=== PATIENT | male | born 1980 | race Caucasian/White ===

== ENCOUNTER 2017-04-21 11:22 | Emergency (ER) | payer OTHER ==
[~2017-04-21] VITALS: Ht 175.3 cm; Wt 127.0 kg
--- OUTSIDE RECORDS SUMMARY | 2017-04-21 11:28 | XMS REPORT | Continuity of Care Document ---
Demographics Preferred Language Unknown Marital Status Unknown Orthodoxy Affiliation Unknown Race Unknown Ethnic Group Unknown Author Author [facility] Address Unknown Phone Unavailable Allergies Active Description Code Type Severity Reaction Onset Reported/Identified Relationship to Patient Clinical Status Yes Penicillins Drug Allergy 07/26/2012 Yes prednisone Drug Allergy 07/26/2012 Medications There is no data. Problems Date Dx Coded Attending Type Code Diagnosis Diagnosed By 01/04/2008 V74.1 SCREENING EXAMINATION FOR PULMONARY TUBERCULOSIS 07/26/2012 796.2 ELEVATED BLOOD PRESSURE READING WITHOUT DIAGNOSIS OF HYPERTENSION 07/26/2012 V72.85 OTHER SPECIFIED EXAMINATION Procedures There is no data. Results There is no data. Encounters ACCT No. Visit Date/Time Discharge Status Pt. Type Provider Facility Loc./Unit Complaint [id number] 07/26/2012 11:16:00 Document Registration
--- NOTE | 2017-04-21 12:25 | ED Integumentary General ---
General Chief Complaint: -Male Stated Complaint: HERNIA Nursing Triage Note: Patient advises he was working yesterday when he began experiencing pain in his right thigh. He advises today that he awoke with swelling to both testicals and increased pain. He advises he was seen by Dr. Mina at the [facility] that advised he would need an ultrasound. Source: patient Exam Limitations: no limitations History of Present Illness Time seen by provider: 12:17 Initial Comments Patient presents to ER by private conveyance with chief complaint of a mass on the right scrotum that started about 2-3 days ago. He went to [facility] and had an examination but no ultrasound done as they don't have ultrasound there apparently. He was told that they thought it might of been a testicular torsion versus inguinal hernia. 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 Pain is not worse on lifting but worse mostly on just touching it. He says his testicles are not painful he has no discharge at a monogamous relationship denies any STI as ever. Patient has no dysuria, fevers, chills, nausea, vomiting, diarrhea. Last bowel movement was this morning, normal, formed. Patient describes the pain as it feels like an ingrown hair. Allergies and Home Medications Allergies Coded Allergies: prednisone (Verified Allergy, Intermediate, 04/21/17) Constitutional: No chills, No diaphoresis Gastrointestinal: No abdominal pain, No constipation, No diarrhea, No nausea, No vomiting Genitourinary: No discharge, No dysuria, No frequency Musculoskeletal: No back pain, No joint pain Skin: No pruritus, No rash Past Szsobdc-Ugynqc-Aputyj Hx Patient Social History Alcohol Use: Denies Use Recreational Drug Use: No Smoking Status: Never a Smoker Type Used: Smokeless Tobacco Recent Foreign Travel: No Contact w/Someone Who Travel: No Recent Infectious Disease Expo: No Recent Hopitalizations: No Physical Abuse: No Sexual Abuse: No Seasonal Allergies Seasonal Allergies: No Surgeries History of Surgeries: No Respiratory History of Respiratory Disorde: No Cardiovascular History of Cardiac Disorders: No Neurological History of Neurological Disord: No Genitourinary History of Genitourinary Disor: No Gastrointestinal History of Gastrointestinal Di: No Musculoskeletal History of Musculoskeletal Dis: No Endocrine History of Endocrine Disorders: No HEENT History of HEENT Disorders: No Cancer History of Cancer: No Psychosocial History of Psychiatric Problem: No Suicide Risk Score: 0 Integumentary History of Skin or Integumenta: No Blood Transfusions History of Blood Disorders: No Physical Exam Vital Signs Vital Sign - Last 12Hours 04/21/17 11:33 Pulse 86 Resp 14 B/P (MAP) 141/80 (100) Pulse Ox 98 O2 Delivery Room Air Capillary Refill : Less Than 3 Seconds General Appearance: WD/WN, no apparent distress HEENT: PERRL/EOMI, pharynx normal Gastrointestinal: normal bowel sounds, non tender, soft Extremities: normal range of motion, non-tender, normal inspection Neurologic/Psychiatric: alert, oriented x 3 Skin: other (lateral right scrotum with a 4 x 6 cm indurated erythematous tender nodule in the skin consistent with possible abscess. There is no central pore, drainage or evidence of recent injury.) I&D : Blade Size: 11 I & D Procedure: betadine prep, no Wound Packing Progress Indurated abscess was infiltrated and a ring block fashion around the central spot that had a martinez. The patient was ascertained to be numb and 11 blade was passed in a crosshatch incision and a modest amount of dark purulent drainage came out. A sterile Q-tip was then passed and loculations were broken up and some more purulence was produced. Patient was then dressed with a bit of gauze and tape after being flushed with 10 cc of sterile saline. Progress/Results/Core Measures Results/Orders Vital Signs/I&O Vital Sign - Last 12Hours 04/21/17 11:33 Pulse 86 Resp 14 B/P (MAP) 141/80 (100) Pulse Ox 98 O2 Delivery Room Air Blood Pressure Mean: 100 Progress Note : Time: 12:24 Progress Note Because of its proximity to the testicles and testicles are not tender Reglan order an ultrasound to make sure there is no chance of being an inguinal hernia is quite large indurated and I'm unable to do a satisfactory right inguinal exam. If the ultrasound makes it look like an abscess and we will drain it. Diagnostic Imaging Diagonstic Imaging: Ultrasound Plain Films/CT/US/NM/MRI: other (scrotum) Comments NAME: EPIFANIO BLAKELY MED REC#: [id number] PT STATUS: REG ER : 1980 PHYSICIAN: DIRK BROOKS ADMIT DATE: 04/21/17/ER Draft Date of Exam:04/21/17 US SCROTUM (Testicle) [id number] EXAM: US SCROTUM (Testicle) [id number] INDICATION: Right scrotal pain. COMPARISON: None. FINDINGS: Right testicle measures 4.1 x 2.2 x 2.9 cm. The left testicle measures 3.5 x 2.0 x 2.7 cm. Normal echogenicity and flow by color Doppler within both testicles. Complex fluid collection of the right testicle measuring 1 cm in diameter. Edema within the adjacent scrotal soft tissues. Left varicocele. No hydrocele. IMPRESSION: Complex fluid collection measuring 1.8 cm in diameter superior to the right testicle. This is reportedly within the subcutaneous tissues with surrounding inflammatory changes. Findings are nonspecific and could represent a small abscess or hematoma. Dictated on workstation # [id number] Dict: 04/21/17 1324 Trans: 04/21/17 1331 [facility] [id number] Interpreted by: ASHIA PALMA MD Electronically signed by: Reviewed: Reviewed by Me Departure Impression Impression: Primary Impression: Scrotal wall abscess Disposition: HOME, SELF-CARE Condition: Improved Departure-Patient Inst. Decision time for Depature: 14:02 Referrals: SHAY HIRSCH DO (PCP/Family) Primary Care Physician Patient Instructions: Abscess Incision and Drainage (DC) Add. Discharge Instructions: Clean the wound at least daily with soap and water only. No antiseptics like hydrogen peroxide, alcohol, iodine. Place a loose bit of gauze over the wound just to collect the drainage but do not plug the wound up. The skin should heal over the next 24-48 hours. Take the antibiotics when you pick them up and then twice a day with a meal. If you have pain you may use an ice pack, Tylenol 1000 g every 8 hours, ibuprofen 800 mg every 8 hours and finally hydrocodone one tablet every 6 hours as needed for pain. Return to the ER or primary care if you begin to experience worsening redness, pain or nausea, vomiting and fevers. All discharge instructions reviewed with patient and/or family. Voiced understanding. Scripts Sulfamethoxazole/Trimethoprim (Bactrim Ds Tablet) 1 Each Tablet 1 EACH PO BID WITH MEALS for 7 Days, #14 TAB 0 Refills Prov: LOUIS BLANCO 04/21/17 Hydrocodone Bit/Acetaminophen (Hydrocodone/Acetaminophen 5/325mg Tablet) 1 Tab Tab 1 EACH PO Q6H Y for BREAKTHROUGH PAIN, #8 TAB 0 Refills Prov: LOUIS BLANCO 04/21/17 Work/School Note: Work Release Form Date Seen in the Emergency Department: Apr 21, 2017 Return to Work: Apr 24, 2017 Restrictions: No Restrictions Copy Copies To 1: SHAY HIRSCH TITUS J Apr 21, 2017 12:25
--- NOTE | 2017-04-21 13:32 | Diagnostic Imaging Report ---
EXAM: US SCROTUM (Testicle) [id number] INDICATION: Right scrotal pain. COMPARISON: None. FINDINGS: Right testicle measures 4.1 x 2.2 x 2.9 cm. The left testicle measures 3.5 x 2.0 x 2.7 cm. Normal echogenicity and flow by color Doppler within both testicles. Complex fluid collection of the right testicle measuring 1 cm in diameter. Edema within the adjacent scrotal soft tissues. Left varicocele. No hydrocele. IMPRESSION: Complex fluid collection measuring 1.8 cm in diameter superior to the right testicle. This is reportedly within the subcutaneous tissues with surrounding inflammatory changes. Findings are nonspecific and could represent a small abscess or hematoma. Dictated by: Dictated on workstation # [id number]
[2017-04-21] MEDS ORDERED: ACHD5005 PO (14:06)
[2017-04-21] MEDS ORDERED: SULF1TAB35 PO (14:06)
[2017-04-21 14:17] VITALS: BP 141/80
== END 2017-04-21 14:17 | disposition home or self-care (01) ==
LOC: EDUNIT# 11:22 → ER 11:25
DX: N49.2 Inflammatory disorders of scrotum (principal)
CPT/HCPCS: 76870; 99283